=== PATIENT | female | born 1945 | race Caucasian/White ===

== ENCOUNTER → 2016-10-12 | Outpatient (CLI) | payer OTHER, MEDICARE | LOC: BMCIMAGING 09:56 | PROVIDERS: ATTEND Internal Medicine | DX: Z13.820 Encounter for screening for osteoporosis (principal); M85.80 Other specified disorders of bone density and structure, unspecified site ==

== ENCOUNTER → 2017-11-29 | Outpatient (CLI) | payer OTHER, MEDICARE | LOC: BMCIMAGING 08:24 | PROVIDERS: ATTEND Internal Medicine | DX: Z12.31 Encounter for screening mammogram for malignant neoplasm of breast (principal); Z79.890 Hormone replacement therapy ==

== ENCOUNTER 2018-01-15 14:21 | Emergency (ER) | payer OTHER, MEDICARE ==
--- NOTE | 2018-01-15 14:38 | EDPHY ---
HPI/HX/ROS/PE/MDM Narrative: CHIEF COMPLAINT: Syncope, low blood pressure HISTORY OF PRESENT ILLNESS: The patient is a 72 y/o female arriving via EMS after several syncopal episodes accompanied by being hypotensive with a blood pressure of 70/40. This morning she was walking her dog when he pulled on the leash, which caused her to fall. Since the fall she has had neck and buttock pain which was mildly alleviated with ice. Several hours later she ate a small amount of food and went to the [employer] salon. While at the nail salon she became nauseous and felt like the room was spinning. Patient denies any chest pain or shortness of breath. She denies any palpitations. Per witnesses, the patient then was in and out of consciousness for 1-2 minutes. Denies falling or hitting her head at this time. She does not remember these syncopal episodes. When EMS arrived they noticed that the patient was hypotensive with a blood pressure of 70/40. EMS gave the patietnIV fluids and 4mg IV Zofran. After the fluids the patients BP increased to 100/70. A similar episode of syncope happened while on an airplane. At this time, she developed nausea and decided to go to the bathroom. However, after standing up she had a syncopal episode. No fever, chills, chest pain, shortness of breath, palpitations, vomiting, diarrhea, urinary complaints, headache. REVIEW OF SYSTEMS: Aside from elements discussed in the HPI, a comprehensive 10-point review of systems was reviewed and is negative. PAST MEDICAL HISTORY: Denies SOCIAL HISTORY: , retired, lives in [place] VITAL SIGNS: Reviewed by me GENERAL: Well-developed, well-nourished, resting comfortably in no respiratory distress. HEENT: Atraumatic. Eyes: No icterus, no injection. Mouth: moist mucous membranes. No erythema or lesions. Neck: lower midline and paraspinous c-spine tenderness, supple with no adenopathy. LUNGS: Clear to auscultation bilaterally, no wheezes, rhonchi or rales. CARDIAC: Regular rate and rhythm, no rubs, murmurs or gallops. ABDOMEN: Soft, nontender, nondistended, bowel sounds normal. BACK: Low midline and paraspinous lumbar spine tenderness. No CVA tenderness. EXTREMITIES: No trauma. No edema. Range of motion is normal throughout. NEURO: Alert and oriented, grossly nonfocal. SKIN: Warm and dry, no rash. PSYCHIATRIC: Normal mentation, no agitation. Portions of this note were transcribed by a medical sales consultant. I personally performed a history, physical exam, medical decision making, and confirmed accuracy of information the transcribed note. ED Course: The patient is a 72 y/o female arriving via EMS after several syncopal episodes accompanied by being hypotensive with a blood pressure of 70/40. This morning she did fall while walking her dog and subsequently developed neck and buttock pain. On exam she has lower midline and paraspinous c-spine tenderness and low midline and paraspinous lumbar spine tenderness. Labs, EKG, lumbar spine x-ray, and head and neck CT ordered. 1442: 12-LEAD EKG: Please see the full report in [employer] [facility]. My interpretation: Normal sinus rhythm with a rate of 63. 1624: Spoke with radiologist, patient has normal imaging findings. 1655: Reassessed patient and discussed laboratory and imaging findings. I have advised her to increase her fluid intake and take ibuprofen or Tylenol as needed for pain. Return precautions provided; patient is comfortable with this plan. MDM: Differential diagnosis of this patient's syncopal event was considered including but not limited to vasovagal syncope, arrhythmia, dehydration, and blood loss. Differential diagnosis for the patient's prior fall was considered including but limited to lumbar sprain, contusion, lumbar spine fracture, compression fracture, abrasion. - Data Points Imaging Results: CT Head Impression: 1. Negative noncontrast CT of the head with no intracranial posttraumatic sequela identified. 2. See above report for additional findings. CT Cervical Spine Impression: 1. Negative for fracture. 2. Degenerative changes are seen as detailed above. Results called and discussed with Shakila Wilson MD on 01/15/2018 at 16:22. Dictated By: Manohar Brady MD Lspine films Impression: Negative for fracture with degenerative changes noted. Dictated By: Manohar Brady MD Imaging: Discussed imaging studies w/ simulation analyst Radiologist, I viewed and interpreted images myself Laboratory Results: Laboratory Results 01/15/18 14:21 01/15/18 14:21 Point of Care Test Results: Chemistry 01/15/18 14:57 POC Troponin I 0.00 ng/mL ng/mL (0.00-0.08) General Initial Vital Signs: Initial Vital Signs Temperature (C) 36.8 C 01/15/18 14:30 Heart Rate 61 01/15/18 14:30 Respiratory Rate 16 01/15/18 14:30 Blood Pressure 126/75 H 01/15/18 14:30 O2 Sat (%) 98 01/15/18 14:30 O2 Delivery Mode Room Air Allergies/Adverse Reactions: No Known Allergies Allergy (Verified 01/15/18 14:29) Home Medications: Medication Instructions Recorded Prozac 10 MG (*) 01/15/18 Departure - Departure Disposition: Home, Routine, Self-Care Clinical Impression: Lumbar spine pain Syncope Qualifiers: Syncope type: unspecified Qualified Code(s): R55 - Syncope and collapse Condition: Good Instructions: Syncope (ED), Lightheadedness (ED) Additional Instructions: Drink plenty of fluids. Take ibuprofen and Tylenol as directed for pain. Follow-up with your primary care physician within 72 hours. Return to the emergency department immediately for recurrence of headache, nausea, vomiting, numbness, weakness, neck pain, fever or other concerns. Referrals: Patient,NotPresent [Unknown] - As per Instructions Armando Uriarte MD [Medical Doctor] - As per Instructions Report Scribed for: Shakila Wilson Report Scribed by: Kyara Chaudhary Date of Report: 01/15/18 Time of Report: 14:25
--- NOTE | 2018-01-15 14:45 | CPEKG ---
Heart Rate: 63 RR Interval: 952 P-R Interval: 140 QRSD Interval: 92 QT Interval: 424 QTC Interval: 435 P Willis: 66 QRS Willis: 91 T Wave Willis: 55 EKG Severity - OTHERWISE NORMAL ECG - EKG Impression: SINUS RHYTHM EKG Impression: RIGHT AXIS DEVIATION Electronically Signed By: Shakila Wilson 15-Jan-2018 21:10:37
[2018-01-15 14:51] LABS: PLATELET COUNT 218 10^3/uL (150-400)
[2018-01-15 16:45] VITALS: BP 104/76
== END 2018-01-15 17:23 | disposition home or self-care (01) ==
LOC: EDUNIT#
DX: R55 Syncope and collapse (principal); M54.5 Low back pain
CPT/HCPCS: 84484-PO

== ENCOUNTER → 2018-02-28 | Outpatient (CLI) | payer OTHER, MEDICARE | LOC: FIMAGING 15:25 | PROVIDERS: ATTEND Internal Medicine | DX: R26.81 Unsteadiness on feet (principal); Z91.81 History of falling ==

== ENCOUNTER → 2018-05-04 | Outpatient (CLI) | payer OTHER, MEDICARE | LOC: BHFA 09:15 | PROVIDERS: ATTEND Internal Medicine Cardiovascular Disease | DX: R55 Syncope and collapse (principal) ==

== ENCOUNTER → 2018-10-24 | Outpatient (CLI) | payer OTHER, MEDICARE | LOC: BMCIMAGING 09:41 | PROVIDERS: ATTEND Internal Medicine | DX: Z13.820 Encounter for screening for osteoporosis (principal); M85.89 Other specified disorders of bone density and structure, multiple sites; Z78.0 Asymptomatic menopausal state ==